=== PATIENT | male | born 1960 | race African-American/Black ===

== ENCOUNTER 2019-01-16 20:35 | Emergency (ER) | payer SELFPAY ==
[2019-01-16] MEDS ORDERED: Carvedilol 12.5 MG TAB PO SCH (21:00)
== END 2019-01-16 21:04 | disposition home or self-care (01) ==
LOC: BURERS 20:35
DX: I10 Essential (primary) hypertension (principal); Z86.73 Personal history of transient ischemic attack (TIA), and cerebral infarction without residual deficits; I25.10 Atherosclerotic heart disease of native coronary artery without angina pectoris; E11.9 Type 2 diabetes mellitus without complications; E78.5 Hyperlipidemia, unspecified; I25.2 Old myocardial infarction
CPT/HCPCS: 99283